=== PATIENT | female | born 1965 | race Caucasian/White ===

== ENCOUNTER 2021-05-31 17:44 | Emergency (ER) | payer OTHER, SELFPAY ==
[2021-05-31 17:56] VITALS: BP 144/79; PULSE 86; RESP 16; TEMP 36.6; O2SAT 98
--- NOTE | 2021-05-31 18:25 | ED.EAR ---
HPI - Ear Problem General Chief complaint: Ear Stated complaint: Ear Pain Time Seen by Provider: 05/31/21 18:26 Source: patient and RN notes reviewed Mode of arrival: ambulatory Limitations: no limitations History of Present Illness HPI Narrative: 56-year-old female presents with concern for 5-day history of nasal congestion, postnasal drainage, ear pain. 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 She denies sore throat, headache, body aches, chills, sweats, cough, shortness of breath. MD Complaint: ear pain Related Data Home Medications Medication Instructions Recorded Confirmed atorvastatin 05/31/21 blood sugar diagnostic [OneTouch 05/31/21 05/31/21 Verio test strips] ergocalciferol (vitamin D2) 05/31/21 ertugliflozin [Steglatro] mg 05/31/21 ferrous sulfate [FeroSul] mg 05/31/21 insulin glargine [Lantus Solostar SUBCUT 05/31/21 U-100 Insulin] lancets [OneTouch Delica Plus 05/31/21 05/31/21 Lancet] liraglutide [Victoza 3-Richard] mg SUBCUT 05/31/21 lorazepam 05/31/21 metformin mg 05/31/21 pen needle, diabetic [TechLITE Pen 05/31/21 05/31/21 Needle] Allergies Allergy/AdvReac Type Severity Reaction Status Date / Time ibuprofen Allergy Unknown 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 EYES: Denies visual changes, redness, or discharge. ENT: Reports rhinorrhea, congestion, bilateral otalgia. Denies sinus pain and sore throat. CARDIOVASCULAR: Denies chest pain, palpitations, or edema. RESPIRATORY: Denies cough or dyspnea. GASTROINTESTINAL: Denies abdominal pain, nausea, vomiting, diarrhea SKIN: Denies rash or itching. MUSCULOSKELETAL: Denies myalgia. NEUROLOGIC: Denies headache. All systems reviewed & are unremarkable except as noted in HPI and below PMFSH Comments At time of signature, agree with nursing past medical, surgical, social and family history. There is no relevant family history pertinent to the presenting complaint Exam Narrative: GENERAL: Well-appearing, well-nourished, and in no acute distress. HEAD: Normocephalic EYES: PERRLA, conjunctivae clear ENT: Nares clear, turbinates erythematous, clear discharge. Mucous membranes moist. TM pearly goldsmith with dull light reflex in the right ear, sharp light reflex; no tragal tenderness. Oropharynx not erythematous without lesions. Tonsils not enlarged and without exudate, no drooling, no hoarseness, no trismus, uvula midline. NECK: Supple. No lymphadenopathy CHEST: Clear to auscultation, breath sounds equal. No wheezing, rhonchi, rales, or stridor. No respiratory distress, speaks in full sentences. HEART: Regular rate and rhythm. No murmur heard. SKIN: Warm, dry, no rash. NEURO: Alert and oriented x3. PSYCH: Normal mood and affect Course Course Emergency Course: Patient is aware of diagnosis, understands and agrees to treatment plan. Anticipatory guidance given. Patient agrees to follow-up as directed and is aware of reasons to seek care at the emergency department. Portions of this record may have been created with voice recognition software Vital Signs Vital signs: Vital Signs Temperature 97.8 F 05/31/21 17:56 Pulse Rate 86 05/31/21 17:56 Respiratory Rate 16 05/31/21 17:56 Blood Pressure 144/79 H 05/31/21 17:56 Pulse Oximetry 98 05/31/21 17:56 Temperature 97.8 F 05/31/21 17:56 Pulse Rate 86 05/31/21 17:56 Respiratory Rate 16 05/31/21 17:56 Blood Pressure 144/79 H 05/31/21 17:56 Pulse Oximetry 98 05/31/21 17:56 Reviewed Medical Decision Making MDM Narrative Medical decision making narrative: Differential diagnosis considered: [place] virus, strep pharyngitis, allergic rhinitis, upper respiratory tract infection, sinusitis, rhinosinusitis, nasopharyngitis. viral pharyngitis, otitis media, otitis externa, pneumonia, bronchitis, viral cough syndrome, viral syndr
[2021-06-01 20:47] LABS: SARS-CoV-2 RNA PCR Positive
== END 2021-05-31 18:43 | disposition home or self-care (01) ==
PROVIDERS: Emergency Provider Nurse Practitioner
DX: J06.9 Acute upper respiratory infection, unspecified (principal); Z20.822 Contact with and (suspected) exposure to COVID-19; E03.9 Hypothyroidism, unspecified; E11.9 Type 2 diabetes mellitus without complications; D64.9 Anemia, unspecified; E78.00 Pure hypercholesterolemia, unspecified
CPT/HCPCS: 99213; C9803; G0463; U0003; U0005

== ENCOUNTER 2023-06-19 16:49 | Emergency (ER) | payer OTHER, SELFPAY ==
[2023-06-19 17:08] VITALS: BP 123/62; PULSE 89; RESP 16; TEMP 36.2; O2SAT 98
--- NOTE | 2023-06-19 17:17 | ED.GENADULT ---
HPI - General Adult General Chief complaint: Upper Respiratory Infection Stated complaint: fever,body aches Time Seen by Provider: 06/19/23 17:17 Source: patient, RN notes reviewed and old records reviewed Mode of arrival: ambulatory Limitations: no limitations History of Present Illness HPI narrative: 58-year-old female presents to the [facility] with complaints of fever, body aches and ?feeling like crap. ? 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 Reports 5-year-old was seen at an urgent care yesterday and all testing was negative. Related Data Home Medications Medication Instructions Recorded Confirmed atorvastatin 10 mg tablet 05/31/21 blood sugar diagnostic (OneTouch 05/31/21 05/31/21 Verio test strips) ergocalciferol (vitamin D2) 1,250 05/31/21 mcg (50,000 unit) capsule ertugliflozin 15 mg tablet mg 05/31/21 (Steglatro) ferrous sulfate 325 mg (65 mg mg 05/31/21 iron) tablet (FeroSul) lancets 33 gauge (OneTouch Delica 05/31/21 05/31/21 Plus Lancet) lorazepam 1 mg tablet 05/31/21 metformin 500 mg tablet mg 05/31/21 pen needle, diabetic 31 gauge x 05/31/21 05/31/21 5/16 (TechLITE Pen Needle) semaglutide 2 mg/dose (8 mg/3 mL) mg subcut 06/19/23 subcutaneous pen injector (Ozempic) Allergies Allergy/AdvReac Type Severity Reaction Status Date / Time ibuprofen Allergy Unknown ACCESS LEAD N/V Verified 06/19/23 17:11 Review of Systems Review of Systems: All systems reviewed & are unremarkable except as noted in HPI and below Constitutional: Constitutional: Reports as per HPI, Reports body ache(s), Reports chills, Reports fatigue and Reports fever(s) Eyes: Eyes: Reports no additional eye complaints ENT: Reports system reviewed and no additional complaints, except as documented Cardiovascular: Cardiovascular: Reports no additional cardiovascular complaints, Denies chest pain and Denies dyspnea Respiratory: Respiratory: Reports no additional respiratory complaints, Denies chest congestion, Denies cough and Denies dyspnea Gastrointestinal: Gastrointestinal: Reports no additional gastrointestinal complaints, Denies abdominal pain, Denies nausea and Denies vomiting Musculoskeletal: Musculoskeletal: Reports no additional musculoskeletal complaints Integumentary/Breasts: Skin/Breast: Reports system reviewed and no additional complaints, except as docu Neurologic: Reports system reviewed and no additional complaints, except as documented Psychiatric: Psychiatric: Reports no additional psychiatric complaints Allergic/Immunologic: Allergic/Immunologic: Reports no additional allergic/immunologic complaints PMFSH Comments At the time of my signature, I reviewed and agree with the nursing past medical, surgical, social, and family history. There is no relevant family history pertinent to the patient complaint. Exam Const: General: cooperative, healthy appearing, comfortable, no acute distress, well developed, alert and well nourished Nutritional Appearance: well nourished Orientation/consciousness: patient oriented x3 Limitations: no limitations HENMT: Head: normal to inspection Ears: hearing grossly normal bilaterally, external ears normal, TM's normal bilaterally and EAC's normal Face/Nose/Sinus: Normal external nose present, Normal nares present, Normal nasal mucous membranes and turbinates present, normal facial exam and face symmetric Face and sinus: normal facial exam and face symmetric Mouth: Yes Normal oral and palatal mucosa present, Yes lip normal and Yes moist mucous membranes Throat: posterior oropharynx normal, uvula midline and postnasal drainage Eyes: General: appearance normal, both eyes and all related structures Alignment and Position: alignment normal Periorbital: periorbital findings normal Pupils: Equal, round and reactive pupils present EOM: EOMs intact bilaterally Neck: Neck: normal visual inspection, full ROM, no lymphadenopathy a
== END 2023-06-19 18:08 | disposition home or self-care (01) ==
PROVIDERS: Emergency Provider Nurse Practitioner
DX: U07.1 COVID-19 (principal); Z79.899 Other long term (current) drug therapy
CPT/HCPCS: 87426; 87804; 99213; C9803; G0463

== ENCOUNTER 2024-01-10 19:24 | Emergency (ER) | payer OTHER, SELFPAY ==
--- NOTE | ~2024-01-10 | XR_ITS ---
EXAMINATION: XR foot RT min 3V DATE: 01/10/2024 19:56 INDICATION: Right foot painful hardware. TECHNIQUE: 4 views of right foot were obtained. COMPARISON: None. FINDINGS: There is an old healed fracture of base of fifth metatarsal with fixation with a lag screw. There is remodeling of cuboid where it abuts the head of the screw. There is an old healed fracture of diaphysis of third metatarsal. There is mild hallux valgus. There is mild osteoarthritis of some o f the interphalangeal joints. There is an enthesophyte at plantar aspect of calcaneal tuberosity. Vas cular calcifications are noted. IMPRESSION: 1. Remodeling of cuboid where it abuts the head of the screw in fifth metatarsal. 2. Mild polyarticular osteoarthritis. Reviewed, dictated and finalized at location E. IMPRESSION: 1. Remodeling of cuboid where it abuts the head of the screw in fifth metatarsa l. 2. Mild polyarticular osteoarthritis.
[2024-01-10 19:34] VITALS: BP 166/76; PULSE 81; RESP 16; TEMP 36.9; O2SAT 99
--- NOTE | 2024-01-10 20:18 | ED.GENADULT ---
HPI - General Adult General Chief complaint: Extremity Injury, Lower Stated complaint: right foot painful after pushing a car Source: patient Mode of arrival: ambulatory Limitations: no limitations History of Present Illness HPI narrative: Patient presents for evaluation of right foot patient presents for evaluation of right foot pain. She was assisting her son pushing his car earlier today and has had problems with pain thereafter. pain is constant, throbbing, 7 X severity. She indicates she sustained several toe fractures and foot fracture in October of this year. She was treated by Orthopedics at [facility]. She was recently cleared by them. She states that movement and weight-bearing make her pain worse. Denies paresthesias. She has not taken any medication to assist with her symptoms. Related Data Home Medications Medication Instructions Recorded Confirmed blood sugar diagnostic (OneTouch 05/31/21 05/31/21 Verio test strips) ergocalciferol (vitamin D2) 1,250 50,000 unit PO DAILY 05/31/21 01/10/24 mcg (50,000 unit) capsule ertugliflozin 15 mg tablet 15 mg PO DAILY 05/31/21 01/10/24 (Steglatro) ferrous sulfate 325 mg (65 mg 325 mg PO DAILY 05/31/21 01/10/24 iron) tablet (FeroSul) lancets 33 gauge (OneTouch Delica 05/31/21 05/31/21 Plus Lancet) lorazepam 1 mg tablet 1 mg PO PRN PRN Anxiety 05/31/21 01/10/24 metformin 500 mg tablet 500 mg PO BID 05/31/21 01/10/24 pen needle, diabetic 31 gauge x 05/31/21 05/31/21 5/16 (TechLITE Pen Needle) atorvastatin 40 mg tablet 40 mg PO DAILY 01/10/24 01/10/24 famotidine 40 mg tablet 40 mg PO DAILY 01/10/24 01/10/24 semaglutide 0.25 mg or 0.5 mg (2 0.25 mg subcut WE 01/10/24 01/10/24 mg/3 mL) subcutaneous pen injector (Ozempic) Allergies Allergy/AdvReac Type Severity Reaction Status Date / Time ibuprofen Allergy Unknown 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 EYES: Denies visual changes, redness, or discharge. ENT: Denies rhinorrhea, congestion, sore throat, or otalgia. CARDIOVASCULAR: Denies chest pain, palpitations, or edema. RESPIRATORY: Denies cough or dyspnea. GASTROINTESTINAL: Denies abdominal pain, nausea, vomiting, or diarrhea. GENITOURINARY: Denies dysuria or hematuria. SKIN: Denies rash or itching. MUSCULOSKELETAL: Reports right foot pain NEUROLOGIC: Denies headache, numbness, dizziness, or weakness. PSYCHIATRIC: Denies anxiety or depression. COUNT INCLUDES THE [facility] Past Medical History Medical History Diabetes Surgical History Surgical History H/O foot surgery Family History Family History Mother Family history non-contributory Social History Social History Substance use: never Gender identity (if verbalized by the patient): Female Spiritual care concerns: No Exam Narrative: GENERAL: Well-appearing, well-nourished, and in no acute distress. HEAD: Normocephalic, atraumatic. EYES: PERRLA and EOMI. ENT: Nares clear, no rhinorrhea or epistaxis. Mucous membranes moist. Oropharynx without tonsillar hypertrophy exudate or other lesions. Bilateral TMs pearly goldsmith nonbulging NECK: Supple. No adenopathy or masses. No carotid bruits or JVD CHEST: Clear to auscultation. No respiratory distress. No wheezes rales or rhonchi HEART: Regular rate and rhythm. No murmur heard. Normal peripheral pulses. ABDOMEN: Soft, nontender, nondistended, normal active bowel sounds. EXTREMITIES: Able to dorsi and plantar flex right foot. Able to wiggle all digits of the right foot. There is tenderness over the lateral aspect of right foot along the 5th metatarsal. SKIN: there is a linear surgical scar inferior
== END 2024-01-10 20:15 | disposition home or self-care (01) ==
PROVIDERS: Emergency Provider Nurse Practitioner
DX: S96.911A Strain of unspecified muscle and tendon at ankle and foot level, right foot, initial encounter (principal); X50.0XXA Overexertion from strenuous movement or load, initial encounter; E11.9 Type 2 diabetes mellitus without complications; Z79.84 Long term (current) use of oral hypoglycemic drugs
CPT/HCPCS: 73630; 99213; G0463